=== PATIENT | female | born 1990 | race Caucasian/White ===

== ENCOUNTER 2021-09-28 19:50 | Emergency (ER) | payer BC ==
[~2021-09-28] VITALS: Ht 157.5 cm; Wt 65.0 kg
[2021-09-28 20:01] VITALS: TEMP 98.3
[2021-09-28 20:37] VITALS: BP 129/77; PULSE 78
== END 2021-09-28 20:42 | disposition home or self-care (01) ==
LOC: COL.ER 19:50
DX: S61.215A Laceration without foreign body of left ring finger without damage to nail, initial encounter (principal); S61.211A Laceration without foreign body of left index finger without damage to nail, initial encounter; S60.413A Abrasion of left middle finger, initial encounter; Z23 Encounter for immunization; W29.3XXA Contact with powered garden and outdoor hand tools and machinery, initial encounter; Y92.009 Unspecified place in unspecified non-institutional (private) residence as the place of occurrence of the external cause

== ENCOUNTER 2022-04-08 14:11 | Emergency (ER) | payer OTHER ==
[~2022-04-08] VITALS: Ht 157.5 cm; Wt 74.1 kg
[2022-04-08 14:20] VITALS: TEMP 97.8
[2022-04-08 16:01] VITALS: BP 115/79; PULSE 77
== END 2022-04-08 16:02 | disposition home or self-care (01) ==
LOC: COL.ER 14:11
DX: O26.892 Other specified pregnancy related conditions, second trimester (principal); R60.0 Localized edema; Z3A.27 27 weeks gestation of pregnancy

== ENCOUNTER 2023-05-18 07:24 | Emergency (ER) | payer OTHER ==
[~2023-05-18] VITALS: Ht 157.5 cm; Wt 72.7 kg
[~2023-05-18 07:24] MED LIST: IBU600 MG PO; PRENATAL TABLET PO; ROXICODONE 55 MG/TAB PO
[2023-05-18] MEDS ORDERED: Morphine 4 MG/ML VIAL IV ONE (08:00)
[2023-05-18] MEDS ORDERED: LR 1,000 ML IV ONE (08:00)
[2023-05-18] MEDS ORDERED: Ondansetron 4 MG/2 ML VIAL IV ONE (08:00)
[2023-05-18 08:53] LABS: BASO % 0.5 % (0.0-2.0); EOS % 0.4 % (0.0-4.0); GRAN # 4.6 K/mm3 (1.4-6.5); GRAN % 83.5 % (42.2-75.2); HEMATOCRIT 49.2 % (37.0-47.0); HEMOGLOBIN 16.5 g/dl (12.5-16.0); LYMPH # 0.5 K/mm3 (1.2-3.4); LYMPH % 9.4 % (20.0-51.0); MEAN CELL VOLUME 86 fl (80.0-100.0); MEAN CORPUSCULAR HEMOGLOBIN 29 pg (27-31); MEAN CORPUSCULAR HGB CONC 34 g/dl (33.0-37.0); MEAN PLATELET VOLUME 12.7 fl (7.4-10.4); MONO # 0.3 K/mm3 (0.1-0.6); MONO % 5.8 % (1.7-9.3); PLATELET COUNT 162 K/mm3 (130-400); RED BLOOD COUNT 5.73 M/mm3 (4.10-5.30); REDCELL DISTRIBUTION WIDTH-CV 12.6 % (11.5-14.5)
[2023-05-18 09:12] LABS: ALBUMIN 3.9 gm/dL (3.5-5.0); BILIRUBIN,TOTAL 0.3 mg/dL (0.2-1.2); CALCIUM 9.4 mg/dL (8.4-10.2); CREATININE, serum 0.93 mg/dL (0.57-1.11); POTASSIUM 3.6 mmol/L (3.5-4.5); TOTAL PROTEIN 7.8 gm/dL (6.2-8.1)
[2023-05-18] MEDS ORDERED: ZOFRAN ODT4 MG PO (09:37)
[2023-05-18 10:16] VITALS: BP 104/67; PULSE 95; TEMP 98
== END 2023-05-18 10:16 | disposition home or self-care (01) ==
LOC: COL.ER 07:24
PROVIDERS: Emergency Medicine
DX: R11.2 Nausea with vomiting, unspecified (principal); R19.7 Diarrhea, unspecified; R10.9 Unspecified abdominal pain
CPT/HCPCS: J2270; J2405; J7120